=== PATIENT | female | born 1950 | race Caucasian/White ===

== ENCOUNTER 2019-12-29 10:45 | Day surgery (SDC) | payer OTHER ==
[2019-12-27 16:45] VITALS: BMI 24.3
[2019-12-29] MEDS ORDERED: LIDOCAINE HCL 1%, 10 MG/ML (20ML VIAL) ONE (12:33)
[2019-12-29] MEDS ORDERED: LIDOCAINE HCL/PF 2% SDV 5ML VIAL ONE (12:34)
[2019-12-29] MEDS ORDERED: ceFAZolin SODIUM 1 GM VIAL ONE (12:34)
[2019-12-29] MEDS ORDERED: PROPOFOL 20 ML ONE (12:35)
[2019-12-29] MEDS ORDERED: MIDAZOLAM HCL 2 MG/2 ML SINGLE DOSE VIAL ONE (12:35)
[2019-12-29] MEDS ORDERED: BUPIVACAINE HCL/PF 0.25% (2.5MG/ML) 10 ML VIAL ONE (12:40)
[2019-12-29] MEDS ORDERED: SCOPOLAMINE HYDROBROMIDE 1 PATCH PATCH.TD72 ONE (12:41)
[2019-12-29] MEDS ORDERED: ceFAZolin 2 GRAM PREMIX BAG IVPB ONE (12:55)
[2019-12-29] MEDS ORDERED: LIDOCAINE HCL 1%, 10 MG/ML (20ML VIAL) NR ONE (13:03)
[2019-12-29] MEDS ORDERED: BUPIVACAINE HCL/PF 0.25% (2.5MG/ML) 10 ML VIAL IJ ONE (13:47)
[2019-12-29] MEDS ORDERED: KETOROLAC TROMETHAMINE 30 MG/1 ML VIAL ONE (13:51)
[2019-12-29] MEDS ORDERED: oxyCODONE HCL 5 MG TABLET ONE (16:48)
[2019-12-29] MEDS ORDERED: oxyCODONE HCL 5 MG TABLET PO PRN (17:26)
[2019-12-29 18:17] VITALS: BP 119/71; PULSE 74; TEMP 97.9
--- NOTE | 2020-01-01 09:01 | OP ---
DATE OF OPERATION: 12/29/2019 ATTENDING SURGEONS: Norah Gallegos DPM; Daniel Lal DPM PROSPECT MANAGER: Francisco Carty Resident PREOPERATIVE DIAGNOSES: Painful tailor bunion, bunion, second digit hammertoe, first webspace interdigital lesion, large bone spur right hallux and a chronic paronychia Right Foot POSTOPERATIVE DIAGNOSES: Painful tailor bunion, bunion, second digit hammertoe , first webspace interdigital lesion. OPERATION: Right 2nd hammertoe arthrodesis with implant Tailor bunionectomy, first met bunionectomy of the hallux, Ze osteotmy with separate exostectomy and [place] second digit nail excision with removal of bone spur. ANESTHESIA: General ESTIMATED BLOOD LOSS: 5 mL. HEMOSTASIS: Ankle tourniquet at 325 mmHg. DESCRIPTION OF PROCEDURE: Patient was brought to operating room and placed supine on the operating room table. After adequate IV sedation was administered, local infiltrative block performed utilizing 20 mL of 1% lidocaine in and around the planned incision sites. The wound was then prepped and draped in the usual aseptic fashion. Attention was directed to a dorsolateral incision over the 5th MPJ of the right foot. This was carried down to the level of bone meticulously identifying all vital structures which were retracted. Once visualization of the lateral aspect of the 5th metatarsal head could be achieved, a small sagittal saw was then utilized to remove the lateral prominence. It was then used to smooth down the bone to provide a more smooth contour as was a rasp. This area was flushed out with normal saline , and a layered closure was performed with 4-0, 3-0 Vicryl, and skin was closed with 4 -0 nylon in horizontal mattress stitch. Attention was then directed to a dorsomedian incision over the 1st ray, 1st MPJ distally extending more dorsally, and at the end of the incision, at the lateral aspect of the hallux. This incision was carried down to the level of bone meticulously while vital structures were identified and retracted. The lateral base of the distal phalanx was hypertrophic and was removed with a small exostectomy utilizing a rongeur. This area was flushed. The medial aspect of the 1st metatarsal head was then visualized, and the bump was resected utilizing a bone saw. The area was then, utilizing a saw to feather, providing a smooth contour of the bone. Attention was then directed to the proximal phalanx of the hallux where a small closing wedge osteotomy was performed, also known as an Ze, with the apex laterally. Utilizing a sagittal saw, the cut was made while paying special attention to keep the lateral cortex intact, acting as a hinge. The osteotomy was then secured utilizing a bone staple. Throught a separate incision, a large bone spur was removed from the proximal lateral base of the distal phalanx of the hallux using a power sagital saw. The whole area was then flushed with normal saline copiously, and a layered closure was performed with 4-0, 3-0 Vicryl and skin was closed with 4-0 nylon running interlocking stitch. Attention was then directed to an incision over the 2nd MPJ and up to the interphalangeal joint of the toe. Incision was carried a little bit more proximal past the 2nd MPJ. The area was meticulously carried down to the level of the bone, with all vital structures identified and retracted, and the McGlamry elevator was used to free up the 2nd MPJ. The extensor tendon was excised and gently retracted and an arthroplasty was performed as a prelude to the arthrodesis performed with digital implant Two reaming devices were then utilized to ream the head of the proximal phalanx and the base of the middle phalanx. K-wire was inserted in the middle to perform this. It was cannulated with a cannulated groove. A small implantable device was then screwed into the head of the proximal phalanx, and the base of the middle phalanx was then meticulously fitted onto the distal aspect of the implantable device, providing stable fixation. The area was then copiously flushed with irrigation, and the tendon was then reapproximated with 4-0 Vicryl and a layered closure of 4-0 Vicryl and 4-0 nylon for skin was then utilized, also utilizing running interlocking stitch. At this time, approximately 10 mL of Marcaine was given as postoperative injection in and around the incision sites. The incision sites were covered with Adaptic. A forefoot dressing was applied covered with Coban. Patient tolerated the above anesthesia and surgical procedure well and left the operating room to the recovery area where the patient received postoperative x-rays with vital signs stable and vascular status intact to the remaining digits of the right foot. ... dictating for Daniel Lal DPM and WAYNE Means DPM [id number] MTDD
--- NOTE | 2020-01-02 14:44 | PATH ---
Surgical Pathology Report Patient Name: YANN YOUNGER [facility]. Rec. #: [id number] /Age/Gender: 1950 (Age: 69) / F Account: [id number] Location: [facility] SUR[facility]ICAL Taken: 12/29/2019 Received: 01/01/2020 Reported: 01/02/2020 Physicians: Norah Gallegos DPM Specimen(s) Received SOFT TISSUE RIGHT FIRST TOE AND BONE Clinical History Right hallux valgus, hammertoe and Liliam bunion Final Diagnosis RIGHT FIRST TOE, SOFT TISSUE AND BONE, EXCISION: PORTIONS OF BONE WITH FATTY MARROW SHOWING FOCAL DEGENERATIVE CHANGE. SEPARATE PORTION OF SKIN WITH ACANTHOSIS AND HYPERKERATOSIS. Electronically Signed Paras Ramos M.D. Gross Description Received in formalin labeled "soft tissue right first toe and bone," is a 2.5 x 0.6 cm garcia, elliptical, unoriented portion of skin excised to depth of 0.3 cm. Also received within the same container is a 3.4 x 2.5 x 0.3 cm aggregate of garcia-yellow bone fragments. Mail Handler Assistant sections are submitted in one cassette, following decalcification. DL/01/01/2020 saudi/01/01/2020
== END 2019-12-29 17:55 | disposition home or self-care (01) ==
LOC: JASU-SURG 10:45
PROVIDERS: ATTEND Podiatrist Foot Surgery
PROC: 0QBQ0ZZ Excision of Right Toe Phalanx, Open Approach (ICD-10-PCS; 2019-12-29)
PROC: 0QSQ04Z Reposition Right Toe Phalanx with Internal Fixation Device, Open Approach (ICD-10-PCS; principal; 2019-12-29 13:00)
PROC: 0QBQ0ZZ Excision of Right Toe Phalanx, Open Approach (ICD-10-PCS; 2019-12-29 13:00)
DX: M21.621 Bunionette of right foot (principal); M20.41 Other hammer toe(s) (acquired), right foot
CPT/HCPCS: 73630-TC-RT-FY; 88304-TC; 88311-TC; 94760